=== PATIENT | female | born 1960 | race Caucasian/White ===

== ENCOUNTER 2017-08-19 10:21 | Emergency (ER) | payer OTHER ==
[~2017-08-19] VITALS: Ht 157.5 cm; Wt 90.0 kg
[~2017-08-19 10:21] MED LIST: ARAVA10 MG PO; ASPIRIN EC325 MG PO; BACTRIM,SEPT1 TABLET PO; CIPRO500 MG PO; DIABETA,MICRONAS5 MG PO; DONNATAL1 TABLET PO; ENDOCET 5-3251 EACH PO; FENOFIBRATE145 M1 PO; FENOFIBRATE160 M1 PO; FOLIC ACID1 MG PO; GLUCOPHAGE1000 MG PO; GLYBURIDE5 MG PO; HUMIRA; HUMIRA40 MG/0.1 SC; HUMULIN 70100 UNIT/2 SC; HYDROCHLOROTH12.5 M2 PO; IBUPROFEN800 MG PO; LEVEMIR FL100 UNIT/1 SC; LEVEMIR100 UNIT/2 SC; LISINOPRIL-HCT1 EAC3 PO; LOPRESSOR50 MG PO; LOVASTATIN40 MG PO; LOW DOSE ASPIRI81 M1 PO; LYRICA100 MG PO; LYRICA300 MG PO; LYRICA75 MG PO; METHOTREXATE2.5 MG PO; METOPROLOL PO; METOPROLOL TART50 MG PO; MOTRIN800 MG PO; MULTIVITAMINS1 EA11 PO; NOVOLOG 10100 UNITS/ SC; NOVOLOG PE100 UNITS/ SC; PAXIL40 MG PO; PERCOCET 5/31 TABLET PO; PRAVASTATIN SOD40 MG PO; Percocet 7.5/325,End PO; REGLAN5 MG PO; STELARA45 MG/0.1 SC; ZESTRIL,PRINIVI20 MG PO; ZESTRIL,PRINIVI40 M1 PO; pravastatin PO
[2017-08-19 10:32] VITALS: BP 145/99
== END 2017-08-19 11:00 | disposition left against medical advice (07) ==
LOC: EME 10:21
DX: Z53.21 Procedure and treatment not carried out due to patient leaving prior to being seen by health care provider (principal)